=== PATIENT | female | born 1945 | race Caucasian/White ===

== ENCOUNTER 2018-03-31 09:00 | Outpatient (RCR) | payer MEDICARE, OTHER ==
--- NOTE | 2018-02-22 16:24 | PT INITIAL EVALUATION ---
MEDICAL DIAGNOSIS: L hip pain, SI joint arthritis TREATMENT DIAGNOSIS: same DATE OF ONSET: 02/22/17 SUBJECTIVE: [place] Watson presents to physical therapy with L low back pain with radiating pain down her L LE along with L hip pain that started approximately 1 year ago. She reports that there was no mechanism of injury. She reports that it first started in the medial hip region while sitting and then has progressed to her L PSIS region and down to her knee over the last year. She reports that the pain is worse with bending and sitting and better with standing and walking. She denies any weight loss (unexplained), accidents , or surgeries. She reports that she thinks that it feels like better posture alleviates the pain while standing or sitting. Pain location is L anterior medial hip, L PSIS and described as sharp, achy. Pain scale is 3 on a ten point pain scale. REHAB PROBLEM LIST: Increased Pain Decreased ROM Decreased Strength Decreased Endurance Decreased Function PREVIOUS MEDICAL HISTORY: See EMR OCCUPATION: Retired OBJECTIVE: Posture: She demonstrated minimal B rounded shoulders, increased thoracic kyphosis, and decreased lumbar lordosis, however, lateral shift was not noted. ROM: flexion: NIL with painful end feel. extension: minimal restriction with painful end feel. side gliding R: minimal restriction with painful end feel. side gliding L: minimal restriction with painful end feel. Palpation: TTP: over L PSIS and medial hip, and gluteal fold Special Tests: Repeated extension: pain during the test and worse following the test. Repeated flexion: pain during the test and better following the test. Mobility: Independent ASSESSMENT: Florida Watson will benefit from skilled physical therapy addressing the listed impairments to improve function and QOL. Based on examination, her provisional classification would be anterior derangement that responded well to flexion based exercises with resulting improvements in trunk AROM and improved end feels in all directions. Short Term Goals 2 weeks: Pt will demonstrate centralized low back pain to improve function and QOL. 4 weeks: Pt will demonstrate abolished low back pain to improve function and QOL. 6 weeks: Pt will return to prior level of function without any low back pain or radiating pain to improve function and QOL. Patient's Goals allow the L leg to work like the R leg PLAN: Patient to be seen for Manual Therapy/STM/MET Strengthening/condition Range of Motion Spinal Stabilization Work Hardening/Cond Stretching Neuromuscular Re-ed Closed Chain Program Posture/Body mechanics Home Exercise Program Therapeutic Activities 2-3x/week for 6 Weeks If you have any questions, comments, or concerns about this report or plan, please contact me at . Thank you, Haja Birmingham, PT, DPT [facility]
[~2018-03-31 09:00] MED LIST: ACET-1966 PO; APIX5TAB PO; CHOL100059 PO; DICL100G39; LEVO88TA45 PO; METO25TA93 PO; MIRA25TA PO; MULT-865 PO; PRAV40TA78 PO; SIMV-54 PO; TRIA15OI20 TP; VENL37.594 PO
--- NOTE | 2018-03-31 15:53 | PT PLAN OF CARE ---
Physician: Prachi Espinoza MD Patient is being seen: 1-2x/week Therapist: Haja Birmingham, PT, DPT Medical Diagnosis: L hip pain, SI joint arthritis Treatment Diagnosis: same Date of Onset: 02/22/17 Date of Initial Evaluation: 02/22/18 Date patient was last seen: 03/31/18 Number of treatments: 8 Number of cancellations/No shows: [*] INTERVENTIONS: Manual Therapy/STM/MET Strengthening/condition Range of Motion Spinal Stabilization Work Hardening/Cond Stretching Neuromuscular Re-ed Closed Chain Program Posture/Body mechanics Home Exercise Program Therapeutic Activities GOALS: 2 weeks: Pt will demonstrate centralized low back pain to improve function and QOL. MET 4 weeks: Pt will demonstrate abolished low back pain to improve function and QOL. MET 6 weeks: Pt will return to prior level of function without any low back pain or radiating pain to improve function and QOL. Not MET PATIENT'S GOAL: allow the L leg to work like the R leg: progressing Status of Patient's Goals: Progressing Patient Compliance: Good Prognosis: Excellent Reasons for continuing therapy: This is a discharge note for [place] Watson. She reports that she continues to have the medial thigh pain with walking more than a few blocks. She reports that she has been performing her specific exercise. She denies any current pain. She continues to demonstrate a provisional classification of a derangement that is responding to posterior lateral principles as she demonstrates centralized to abolished low back pain and full trunk AROM in all directions following the session. She is independent on her specific exercise. She has progressed with her goals. Furthermore, I am certain that if she continues her specific exercise the R medial pain will abolish with ambulation. She will be leaving for the summer. As a result, she will be discharged from PT. Posture: She demonstrated minimal B rounded shoulders, increased thoracic kyphosis, and decreased lumbar lordosis, however, lateral shift was not noted. ROM: flexion: NIL with painful end feel. extension: NIL with normal end feel. side gliding R: NIL with normal end feel. side gliding L: NIL with normal end feel Mobility: Independent If you have any questions, please contact me at [phone]. Thank you, Haja Birmingham, PT, DPT [facility]
== END 2018-03-31 18:00 | disposition home or self-care (01) ==
LOC: PT 09:00
PROVIDERS: ATTEND Family Medicine
DX: M25.552 Pain in left hip (principal); M46.98 Unspecified inflammatory spondylopathy, sacral and sacrococcygeal region; M54.5 Low back pain
CPT/HCPCS: 97162

== ENCOUNTER → 2018-06-01 | Outpatient (CLI) | payer MEDICARE, OTHER ==
--- NOTE | 2018-06-01 10:53 | RADIOLOGY IMAGING REPORT ---
FACILITY: [facility] PATIENT NAME: Florida Watson : 1945 MR: [id number] V: [id number] EXAM DATE: ORDERING PHYSICIAN: BLANCA FAIRCHILD TECHNOLOGIST: Location: [facility] Patient: Florida Watson : 1945 Visit/Account:[id number] Date of Sevice: 06/01/2018 EXAMINATION: Left hip, 2 views 06/01/2018 9:34 AM HISTORY: lucency along the left femoral neck seen on past xray. Patient reports left hip pain for on e year which comes and goes COMPARISON: None FINDINGS: Images include AP pelvis and frog-leg left hip. Potential lucency in the lateral left fem oral neck on the KUB in 2014 is less discretely evident currently and does not appear to be of clinic al concern. Both hips are narrowed with spurring. No erosive changes. Lower lumbar spondylosis. N o acute bony finding. IMPRESSION: Mild/moderate osteoarthritis of the hips. No acute bony finding. Report Dictated By: Haris Barker MD at 06/01/2018 10:31 AM Report E-Signed By: Haris Barker MD at 06/01/2018 10:49 AM WSN:[id number]
== END ==
LOC: RAD 09:17
PROVIDERS: ATTEND Family Medicine
DX: M16.0 Bilateral primary osteoarthritis of hip (principal); M47.896 Other spondylosis, lumbar region

== ENCOUNTER → 2019-01-05 | Outpatient (CLI) | payer MEDICARE, OTHER ==
--- NOTE | 2019-01-05 14:01 | RADIOLOGY IMAGING REPORT ---
[place] [facility] [place] : 1945 MR: [id number] V: [id number] EXAM DATE: ORDERING PHYSICIAN: MICHAEL AGGARWAL TECHNOLOGIST: Location: [facility] Patient: Florida Watson : 1945 Visit/Account:[id number] Date of Sevice: 01/05/2019 [facility] [place] HISTORY: Evaluate size of uterus and endometrial stripe TECHNIQUE: Transvaginal ultrasound pelvis. COMPARISON: None. FINDINGS: Uterus: ; 5.5 cm length x 2.7 cm AP x 4.3 cm transverse. Myometrium: Unremarkable. Endometrium: Unremarkable; double thickness 5.7 mm. Cervix: There are small nabothian cysts and calcifications noted within the cervix. Ovaries: Right - not visualized Left - not visualized Adnexa: Left adnexal vessels were slightly prominent. Free pelvic fluid: None. IMPRESSION: The endometrial stripe measures 5.7 mm Neither ovary visualized Small nabothian cysts and calcifications within the cervix Report Dictated By: Marija Renner MD at 01/05/2019 1:53 PM Report E-Signed By: Marija Renner MD at 01/05/2019 1:56 PM WSN:[email or web address]
== END ==
LOC: RAD 09:58
PROVIDERS: ATTEND Obstetrics & Gynecology
DX: Z02.9 Encounter for administrative examinations, unspecified (principal)

== ENCOUNTER → 2019-01-09 | Outpatient (CLI) | payer MEDICARE, OTHER ==
[2019-01-09 10:07] LABS: PLATELET COUNT, AUTOMATED 218 K/uL (150-450)
--- NOTE | 2019-01-09 10:55 | EKG ---
FACILITY: [facility] PATIENT NAME: ISIS BOBO : [id number] MR: [id number] V: [id number] EXAM DATE: ORDERING PHYSICIAN: BLANCA FAIRCHILD TECHNOLOGIST: MYA Test Reason : PREMATURE ATRIAL CON Blood Pressure : / mmHG Vent. Rate : 063 BPM Atrial Rate : 063 BPM P-R Int : 150 ms QRS Dur : 070 ms QT Int : 410 ms P-R-T Axes : 057 056 055 degrees QTc Int : 419 ms Normal sinus rhythm Normal ECG No previous ECGs available Referred By: DEVORAH Confirmed By:
== END ==
LOC: LAB 09:39
PROVIDERS: ATTEND Family Medicine
DX: Z01.812 Encounter for preprocedural laboratory examination (principal); I48.91 Unspecified atrial fibrillation
CPT/HCPCS: 36415; 82310; 82374; 82435; 82565; 82947; 84132; 84295; 84520; 85025

== ENCOUNTER 2019-03-08 00:17 | Observation (INO) | payer MEDICARE, OTHER ==
--- NOTE | 2019-03-07 10:25 | History & Physical ---
History of Present Illness Chief Complaint Uterovaginal prolapse History of Present Illness 73-year-old presents for surgical management of symptomatic cystocele and uterine prolapse. She was initially seen and evaluated for vaginal bulge on 06/24/18. She was prescribed pelvic floor muscle therapy, but is very hesitant to start this. Her vaginal bulge symptoms have continued to worsen throughout the past few months. She now feels a bulge outside of the opening of the vagina most of the time. She also notes that urinary incontinence is more frequent. The urinary incontinence is primarily occurring at night when she has a full bladder and cannot get to the bathroom in time. She does not have significant stress urinary incontinence. She denies any vaginal bleeding. She is not interested in a pessary, she does not think she could tolerate it. She is also concerned that as her dexterity worsens with age, she would not be able to continue with the pe ssary. She is still sexually active. She would like to move forward with surgery. Of note, the patient is managed by Dr. Fairchild with paroxysmal atrial fibrillation with a history of an embolic stroke in 2015. She follows with a outside cutter from [facility]. She is on Eliquis which she will hold for one day prior to surgery and resume on postoperative day #1. History Obstetrical History: . Hx of 2 FT SVDs. Past Medical History: PMH: 1) Paroxysmal atrial fibrillation, history of embolic stroke in 06/2016 2) Hyperlipidemia 3) Arthritis 4) Anxiety 5) Hypothyroid 6) Uterovaginal prolapse PSH: 1) Tonsillectomy 2) Tubal ligation 3) Finger joint replacement Allergies: Coded Allergies: No Known Drug Allergies (Unverified , 07/07/16) Social History: Denies tobacco, alcohol or drug use. She is . Family History: FH: diabetes mellitus FATHER, , Age:62 Med Rec Home Meds Active Scripts Levothyroxine Sodium (LEVOTHYROXINE SODIUM) 88 Mcg Tablet, 1 TAB PO QDAY for 90 Days, #90 TAB 2 Refills Prov:BLANCA FAIRCHILD MD 10/24/18 Apixaban (ELIQUIS) 5 Mg Tablet, 1 TAB PO BID for 90 Days, #180 TAB 4 Refills Prov:BLANCA FAIRCHILD MD 05/05/18 Pravastatin Sodium (PRAVASTATIN SODIUM) 40 Mg Tablet, 1 TAB PO QDAY for 90 Days, #90 TAB 4 Refills Prov:BLANCA FAIRCHILD MD 03/22/18 Reported Medications Metoprolol Tartrate (METOPROLOL TARTRATE) 25 Mg Tablet, 0.5 TAB PO HS, TAB 03/02/19 Acetaminophen (TYLENOL) 325 Mg Tablet, 2 TAB PO PRN, TAB 02/21/18 Discontinued Reported Medications Diclofenac Sodium 1% Gel (VOLTAREN 1% GEL) 100 Gm Gel..gram., PRN 06/07/17 Triamcinolone Acetonide 0.1% Oint 15 Gm Tube (TRIAMCINOLONE ACETONIDE 0.1% 15 GM TUBE) 15 Gm Oint...g., 15 GM TP PRN, TUBE 06/07/17 Discontinued Scripts Metoprolol Tartrate (METOPROLOL TARTRATE) 25 Mg Tablet, 0.5 TAB PO QDAY, #45 TAB 3 Refills Prov:BLANCA FAIRCHILD MD 09/13/18 Medical Decision Making Imaging Ultrasound/Imaging PATIENT NAME: Florida Watson : 1945 MR: [id number] V: [id number] EXAM DATE: ORDERING PHYSICIAN: MICHAEL AGGARWAL TECHNOLOGIST: Location: [facility] Patient: Florida Watson : 1945 Visit/Account:[id number] Date of Sevice: 01/05/2019 [facility] [place]AG[place]AL NON-OB HISTORY: Evaluate size of uterus and endometrial stripe TECHNIQUE: Transvaginal ultrasound pelvis. COMPARISON: None. FINDINGS: Uterus: ; 5.5 cm length x 2.7 cm AP x 4.3 cm transverse. Myometrium: Unremarkable. Endometrium: Unremarkable; double thickness 5.7 mm. Cervix: There are small nabothian cysts and calcifications noted within the cervix. Ovaries: Right - not visualized Left - not visualized Adnexa: Left adnexal vessels were slightly prominent. Free pelvic fluid: None. IMPRESSION: The endometrial stripe measures 5.7 mm Neither ovary visualized Small nabothian cysts and calcifications within the cervix Report Dictated By: Marija Renner MD at 01/05/2019 1:53 PM Report E-Signed By: Marija Renner MD at 01/05/2019 1:56 PM Pre-Admit Course Medical Record Review: Yes Assessment and Plan Problems: (1) Uterine prolapse Assessment & Plan: 73-year-old presents for surgical management of her symptomatic cystocele and uterine prolapse. On exam she has a Grade 3-4 cystocele, grade 2-3 uterine prolapse, and no appreciable rectocele. She is adamant she wants definitive management with surgery as opposed to a pessary. We discussed proceeding with a robotic-assisted TLH/BSO with anterior repair and diagnostic cystoscopy. She is scheduled for 03/08/19. She has been surgically cleared with Dr. Fairchild to proceed as a moderate risk. She has recommended stopping Eliquis the day before surgery and restarting on postoperative day #1 (her note is in [facility]). I discussed with the patient that we will keep her on telemetry while she is off of anticoagulants to ensure she does not develop atrial fibrillation postoperatively. (2) Cystocele Assessment & Plan: As above. Problem Qualifiers (1) Cystocele: Cystocele location: midline Qualified Codes: N81.11 - Cystocele, midline MICHAEL AGGARWAL MD Mar 07, 2019 10:25
[~2019-03-08] VITALS: Ht 160 cm; Wt 75.7 kg
[2019-03-08] VITALS (13 sets, daily range): BP systolic 108–136; BP diastolic 56–93
[2019-03-08] MEDS ORDERED: PHENAZOPYRIDINE 200 MG TAB PO ONE (06:30)
[2019-03-08] MEDS ORDERED: MIDAZOLAM 2 MG/2 ML VIAL IVP PRN (06:30)
[2019-03-08] MEDS ORDERED: ceFAZolin(*) 2GM/D5W 50ML 50 ML IVPB ONE (06:30)
[2019-03-08] MEDS ORDERED: LIDOCAINE/SOD BICARB 8.4% SYR ID ONE (06:30)
[2019-03-08] MEDS ORDERED: NORMOSOL R SOLN(*) 1000 ML BAG 1,000 ML IV PRN (06:30)
[2019-03-08] MEDS ORDERED: FAMOTIDINE 20 MG TAB PO ONE (06:30)
[2019-03-08] MEDS ORDERED: DEXAMETHASONE SOD 4 MG/ML VIAL ONE (06:49)
[2019-03-08] MEDS ORDERED: PROPOFOL EMUL(*) 10MG/ML 20 ML 20 ML ONE (06:49)
[2019-03-08] MEDS ORDERED: ONDANSETRON 4 MG/2 ML VIAL ONE (06:49)
[2019-03-08] MEDS ORDERED: METOCLOPRAMIDE 10 MG/2 ML SDV ONE (06:49)
[2019-03-08] MEDS ORDERED: LIDOCAINE MPF 1% 5 ML VIAL ONE (06:49)
[2019-03-08 06:50] LABS: PLATELET COUNT, AUTOMATED 185 K/uL (150-450)
[2019-03-08] MEDS ORDERED: SUGAMMADEX SOD 200 MG/2 ML SDV ONE (06:51)
[2019-03-08] MEDS ORDERED: fentaNYL CITR 250 MCG/5 ML AMP ONE (06:51)
[2019-03-08] MEDS ORDERED: VASOPRESSIN 20 UNIT/ML VIAL ONE (07:07)
[2019-03-08] MEDS ORDERED: BUPIV/EPI 0.25% 1:200,000 50ML INFIL ONE (07:07)
[2019-03-08] MEDS ORDERED: NS(*) 0.9% 250 ML BAG 250 ML ONE (07:07)
[2019-03-08] MEDS ORDERED: ROCURONIUM BROM 10 MG/ML 5 ML ONE (07:24)
[2019-03-08] MEDS ORDERED: ESTROGENS CONJ VAG CREAM 30 GM TUBE PV ONE (09:10)
[2019-03-08] MEDS ORDERED: DLR(*) 1000 ML BAG 1,000 ML IV PRN (09:26)
--- NOTE | 2019-03-08 09:26 | Post Operative Note ---
Operative Note - MOTOR OPERATOR Operative Day Date: March 08, 2019 Time: 09:25 Physicians Surgeon: Bren Drill Press Operator For Metal: Vinnie Anesthesia: GETA, Crechiquis Diagnosis Pre-Op Diagnosis: Symptomatic Grade 3-4 cystocele, grade 2-3 uterine prolapse Post-Op Diagnosis: Same Procedure Procedure(s): RATLH/BSO, dx cysto, anterior colporraphy Specimen Removed:(Maybe N/A): Uterus, tubes, ovaries Fluids Fluids: 1800cc Estimated Blood Loss: 50cc MICHAEL AGGARWAL MD March 08, 2019 09:26
[2019-03-08] MEDS ORDERED: ACETAMINOPHEN 325 MG TAB PO PRN (09:30)
[2019-03-08] MEDS ORDERED: SIMETHICONE 80 MG CHEW CHEW PRN (09:30)
[2019-03-08] MEDS ORDERED: METOCLOPRAMIDE 10 MG/2 ML SDV IV PRN (09:30)
[2019-03-08] MEDS ORDERED: ONDANSETRON 4 MG/2 ML VIAL IV PRN (09:30)
[2019-03-08] MEDS ORDERED: MAGNESIUM HYDROXIDE* 30ML UDCP PO PRN (09:30)
[2019-03-08] MEDS ORDERED: IBUP600T22 PO (09:40)
[2019-03-08] MEDS ORDERED: OXYC-865 PO (09:40)
[2019-03-08] MEDS ORDERED: MEPERIDINE HCL 50 MG/ML SDV 50 MG/ML VIAL ONE (09:48)
--- NOTE | 2019-03-08 11:36 | OPERATIVE REPORT 1 ---
EVENT DATE: March 08, 2019 SURGEON: Naz Correia MD ANESTHESIOLOGIST: Bayron Patel MD ANESTHESIA: General endotracheal tube. POLICY MANAGER: René Birmingham MD PREOPERATIVE DIAGNOSIS Symptomatic cystocele and uterine prolapse. POSTOPERATIVE DIAGNOSIS Symptomatic cystocele and uterine prolapse. PROCEDURE PERFORMED 1. Robotic-assisted total laparoscopic hysterectomy with bilateral salpingo- oophorectomy. 2. Anterior colporrhaphy. 3. Diagnostic cystoscopy. SPECIMENS Uterus, bilateral fallopian tubes, and bilateral ovaries. IV FLUIDS 1800 cc. ESTIMATED BLOOD LOSS 50 cc. INDICATIONS FOR PROCEDURE This patient is a 73-year-old, 3, para 2 0-1-2 who presents for surgical management of a symptomatic cystocele and uterine prolapse. She was initially seen and evaluated with a vaginal bulge on 06/24/18. She was prescribed pelvic floor muscle therapy, but was hesitant to start this. She has since started this. However, her vaginal bulge symptoms have continued to worsen. She now feels a bulge outside of the opening of the vagina most of the time. She was counseled on the option of a Pessary, but declines this. She requested definitive management. She therefore requested to move forward with surgery and was admitted for the above said procedure. DESCRIPTION OF PROCEDURE The patient was properly identified and taken to the operating room. She was placed under general endotracheal tube anesthetic, placed in the dorsal lithotomy position and prepped and draped in the usual fashion for a laparoscopic assisted vaginal procedure. The patient received Ancef preoperatively for prophylactic antibiotics. Her SCDs were on and functioning. A bimanual exam was performed which revealed a small anteverted uterus. A right angle Grave speculum was placed to visualize the cervix which was multiparous without lesion. The anterior lip was grasped with a tenaculum. The cervix was serially dilated to 5 mm using Hegar dilators. A medium VCare uterine manipulator was then requested and assembled. A suture was placed through the anterior lip of the cervix to the cervical os and then from the os through the posterior lip of the cervix. This suture was then passed through the VCare. The VCare was then placed up to the uterine fundus and the tip was insufflated. The colpotomy ring was advanced to be flush against the cervix and vaginal mucosa. This was then tied down with an 0 Vicryl suture. The PneumoClear was then advanced into the vagina and secured. A Nguyen catheter was then placed to drain the bladder. The patient was placed in the supine position. Attention was turned to the laparoscopic portion of the procedure. The supraumbilical region was infiltrated with 0.25% Marcaine with epinephrine. A Veress needle was tested and proven to be functioning. An 8 mm incision was made supraumbilically. The Veress needle was initially passed through the incision into the abdominal cavity using a double click test. Pneumoperitoneum was able to be achieved. The 8 mm trocar was introduced through the supraumbilical midline incision under direct visualization using a DoorDash laparoscope. Once entry into the abdominal cavity was confirmed, the remaining locations for the trocars were planned with 2 on the right and 2 on the left. The two 8 mm trocars were inserted under direct visualization on the patient's right side after infiltrating 0.25% Marcaine and making an 8 mm incision with the scalpel. On the patient's left side, an 11 mm incision was made on the most lateral incision and an 8 mm incision on the more medial. These two ports were then introduced under direct visualization. At this time, the patient was placed into Trendelenburg position and the da Velma robotic system was prepared for docking. It was then brought in and aligned. The endoscope port was docked. The endoscope was then introduced and the targeting was performed on the uterus. The remaining arms were then docked without difficulty. The fenestrated bipolar graspers, ProGrasp and monopolar scissors were then advanced under direct visualization into the pelvis and the energy was connected. At this time, I was able to break sterile attire and sit at the console to initiate the hysterectomy. Examination of the pelvis revealed no significant adhesions or abnormalities. In order to initiate the salpingo oophorectomy on the patient's left side, the left ureter was identified and noted to be far away from the IP ligament. The left round ligament was cauterized and transected which allowed to open the anterior leaflet of the broad ligament which was brought down minimally. The peritoneum was then opened along the pelvic side- wall superiorly towards the IP ligament which allowed me to isolate the IP ligament well. The infundibulopelvic ligament was placed on gentle traction with grasping the patient's left tube and ovary. The IP was cauterized and transected using a combination of bipolar and monopolar scissors. The remaining peritoneum was then brought down as well as the mesosalpinx up to the uterine attachment. The broad ligament was further opened up anteriorly and brought across the midline above the colpotomy ring in order to separate the vesicouterine peritoneum. The posterior peritoneum was then dissected further off the uterus on the left side, down towards the cervix. The uterine vessels were identified, cauterized and transected in order to allow for the colpotomy to be performed. Attention was then turned to the patient's right side, where the right ureter was identified and noted to be far away from the IP ligament. The right round ligament was then cauterized and transected which allowed opening of the broad ligament as well as superiorly the peritoneum. The peritoneum was further dissected allowing a window for the IP ligament to be identified. The IP ligament was skeletonized, cauterized and transected on the right side. The mesosalpinx was then taken down, followed by cautery and ligation of the anterior leaflet of the broad ligament. The vesicouterine peritoneum was further dissected to allow the colpotomy ring to be well identified. The posterior leaflet of the broad ligament on the right side was then taken down to the level of the colpotomy ring. The uterine vessels were visualized and cauterized on the right side. The colpotomy was then initiated anteriorly with identification of the colpotomy ring. The colpotomy was then continued in a circumferential fashion until the entire colpotomy was complete. The uterus was then delivered into the vagina. The cuff was then noted to be hemostatic. An 0 Vicryl suture was utilized in a [id number] fashion to reapproximate the tissue on the left corner. A V-Loc suture was then initiated on the right side to reapproximate the right corner, following to the left with an unlocked suture. Once this was completely closed, the suture was followed backwards with one additional suture towards the right. Once this was completed, irrigation was not needed as there was essentially no blood loss during this portion of the surgery. Using the Gregory-Katrin device, the fascia of the accounts payable assistant port was closed using an 0 Vicryl with the robotic assistance. All of the robotic arms were then undocked and the instruments were removed. Pneumoperitoneum was relieved. The 11 mm fascia was tied down. All five skin incisions were reapproximated using a 4-0 Monocryl and closed with Dermabond. Attention then was turned to the anterior repair and diagnostic cystoscopy. The Nguyen catheter was removed from the bladder. The cystoscope was assembled and introduced through the urethra and into the bladder under direct visualization. The entire bladder was evaluated and noted to be normal without any lesion or suture. Bilateral ureteral jets were noted with Pyridium stained urine. The cystoscope was then removed and the Nguyen catheter was replaced. A weighted speculum was placed posteriorly in the vagina to allow visualization of the anterior vaginal wall. An Allis clamp was placed 1 cm proximal to the urethra along the midline of the anterior vagina and two additional Allis clamps on either side of the vagina, just distal to the suture line from the hysterectomy. The anterior vaginal wall was injected with vasopressin to allow for hydrodissection as well as to decrease blood loss. A transverse incision was made between the two Allis clamps on the vagina just distal to the vaginal cuff. Using Metzenbaum scissors, the vaginal mucosa was dissected off the underlying tissue anteriorly. The vaginal mucosa was then further mobilized throughout the entire incision. Additional Allis clamps were placed on the mucosal edges to assist in retraction. Further dissection of the mucosa from the underlying tissue was performed bilaterally until the mucosa had been dissected off the entire bladder. Plication of the vaginal muscularis was then performed using [id number] sutures using a 2-0 Vicryl. The first one in a circumferential manner and the further ones working proximal to distal. Once adequate plication of the tissue was obtained, the redundant vaginal mucosa was removed. The vagina was then closed with a 2-0 Vicryl working in a running, locking fashion. Hemostasis was assured. A vaginal packing was then placed to aid with hemostasis. The patient tolerated this procedure well and recovered in the post anesthesia care unit. All sponge, needle, and instrument counts were correct at the end of this procedure. TIBURCIOD
--- NOTE | 2019-03-08 15:27 | OB/GYN Progress Note ---
OB Subjective Progress Notes Subjective Pt is doing well. She is tolerating po well. Her well is moderately controlled with percocet. Alvarado and pack in. Not yet ambulating. OB Objective Physical Exam Vital Signs Date Time Temp Pulse Resp B/P (MAP) Pulse Ox O2 Delivery O2 Flow Rate FiO2 03/08/19 14:00 70 113/57 (75) 97 1.0 03/08/19 11:00 Nasal Cannula 03/08/19 10:48 20 03/08/19 10:48 97.5 General Appearance: Alert/Awake/No Acute Distress Neurological: No Gross deficits Eyes: Normal Extraocular Movement & Vison Cardiovascular: Normal Rhythm & Peripheral Pulses, Regular Rate and Rhythm Respiratory: No Respiratory Distress, Clear to Auscultation Abdomen: Soft, Non-Tender, Non-Distended Incision: Clean, Dry, Intact, Dermabond Musculoskeletal: No Weakness/Pain Extremities: No Cyanosis,Clubbing or Edema Integumentary: Skin Intact without Lesions or Rash Psychological: Alert & Oriented X3, Appropriate Mood & Affect Result Diagram: 03/08/19 0644 03/08/19 0644 Assessment and Plan Problems: (1) History of robot-assisted laparoscopic hysterectomy Assessment & Plan: POD#0 s/p RATLH/BSO, dx cysto, anterior repair. She is doing well. Remove alvarado and packing tonight. Routine orders otherwise. Continue telemetry. Start Lovenox/Eliquis tonight for VTE prophylaxis. MICHAEL AGGARWAL MD March 08, 2019 15:27
[2019-03-08] MEDS ORDERED: KETOROLAC 30 MG/ML VIAL IVP ONE (16:00)
[2019-03-08] MEDS ORDERED: IBUPROFEN 600 MG TAB PO PRN (16:15)
[2019-03-08 18:15] LABS: PLATELET COUNT, AUTOMATED 206 K/uL (150-450)
[2019-03-08] MEDS ORDERED: ENOXAPARIN 40 MG/0.4ML SYR SC SCH (19:00)
[2019-03-08] MEDS: DOCUSATE CALCIUM 240 MG CAP PO SCH (20:24)
[2019-03-08] MEDS: FAMOTIDINE 20 MG TAB PO SCH (20:24)
[2019-03-08] MEDS: APIXABAN 2.5 MG TABLET PO SCH (20:25)
[2019-03-08] MEDS ORDERED: MAGNESIUM HYDROXIDE* 30ML UDCP PO ONE (21:00)
[2019-03-08] MEDS ORDERED: METOPROLOL TART 50 MG TAB PO SCH (21:00)
[2019-03-09 02:11] VITALS: BP 133/75
[2019-03-09 07:22] VITALS: BP 116/63
--- NOTE | 2019-03-09 08:17 | OB/GYN Progress Note ---
OB Subjective Progress Notes Subjective Doing well. Pain controlled with oral medications. Tolerating regular diet. Ambulating. Voiding but only small amounts - she required a catheter this morning to empty 350cc. Minimal vaginal bleeding. No chest pain, shortness of breath or dizziness. OB Objective Physical Exam Vital Signs Date Time Temp Pulse Resp B/P (MAP) Pulse Ox O2 Delivery O2 Flow Rate FiO2 03/09/19 07:22 98.3 65 116/63 (80) 98 Room Air 03/09/19 02:11 20 03/08/19 22:55 1.0 Intake and Output 03/09/19 07:00 Intake Total 4310 ml Output Total 1150 ml Balance 3160 ml Intake Oral 2360 ml IV Total 1950 ml Output Urine Total 1150 ml General Appearance: Alert/Awake/No Acute Distress Neurological: No Gross deficits Eyes: Normal Extraocular Movement & Vison Cardiovascular: Normal Rhythm & Peripheral Pulses, Regular Rate and Rhythm Respiratory: No Respiratory Distress, Clear to Auscultation Abdomen: Soft, Non-Tender, Non-Distended Incision: Clean, Dry, Intact, Dermabond Musculoskeletal: No Weakness/Pain Extremities: No Cyanosis,Clubbing or Edema Integumentary: Skin Intact without Lesions or Rash Psychological: Alert & Oriented X3, Appropriate Mood & Affect Result Diagram: 03/09/19 0553 03/08/19 0644 Assessment and Plan Problems: (1) History of robot-assisted laparoscopic hysterectomy Assessment & Plan: POD#1 s/p RATLH/BSO, dx cysto, anterior repair. She is doing well. The only concern so far is small urinary retention and requiring a straight cath this morning for it. Will monitor today and if it resolved discharge to home. Continue telemetry. Eliquis has been restarted for VTE prophylaxis. MICHAEL AGGARWAL MD March 09, 2019 08:17
[2019-03-09] MEDS: DOCUSATE CALCIUM 240 MG CAP PO SCH (09:20)
[2019-03-09] MEDS: FAMOTIDINE 20 MG TAB PO SCH (09:20)
[2019-03-09] MEDS ORDERED: INFLUENZA VIRUS VAC 0.5ML SYR IM ONLY ONE (09:30)
[2019-03-09] MEDS: APIXABAN 2.5 MG TABLET PO SCH (09:33)
[2019-03-09 11:09] VITALS: BP 125/73
--- NOTE | 2019-03-09 12:49 | OB/GYN Progress Note ---
OB Subjective Progress Notes Subjective Patient is doing much better. She is able to void without any difficulty. She feels ready to go home. OB Objective Physical Exam Vital Signs Date Time Temp Pulse Resp B/P (MAP) Pulse Ox O2 Delivery O2 Flow Rate FiO2 03/09/19 11:09 98.2 67 125/73 (90) 90 Room Air 03/09/19 02:11 20 03/08/19 22:55 1.0 Intake and Output 03/09/19 07:00 Intake Total 4310 ml Output Total 1150 ml Balance 3160 ml Intake Oral 2360 ml IV Total 1950 ml Output Urine Total 1150 ml General Appearance: Alert/Awake/No Acute Distress Neurological: No Gross deficits Eyes: Normal Extraocular Movement & Vison Cardiovascular: Normal Rhythm & Peripheral Pulses, Regular Rate and Rhythm Respiratory: No Respiratory Distress, Clear to Auscultation Abdomen: Soft, Non-Tender, Non-Distended Incision: Clean, Dry, Intact, Dermabond Musculoskeletal: No Weakness/Pain Extremities: No Cyanosis,Clubbing or Edema Integumentary: Skin Intact without Lesions or Rash Psychological: Alert & Oriented X3, Appropriate Mood & Affect Result Diagram: 03/09/19 0553 03/08/19 0644 Assessment and Plan Problems: (1) History of robot-assisted laparoscopic hysterectomy Assessment & Plan: POD#1 s/p RATLH/BSO, dx cysto, anterior repair. She is doing well. Meeting milestones. Desires discharge to home today. Discussed routine postoperative expectations. Questions answered. Follow up in clinic in 1-2wks for postop check. MICHAEL AGGARWAL MD March 09, 2019 12:49
--- NOTE | 2019-03-09 12:50 | OB/GYN Discharge Summary ---
Discharge Summary Reason for Hosp/Final Diag: (1) History of robot-assisted laparoscopic hysterectomy Hospital Course & Plan: POD#1 s/p RATLH/BSO, dx cysto, anterior repair. She is doing well. Meeting milestones. Desires discharge to home today. Discussed routine postoperative expectations. Questions answered. Follow up in clinic in 1-2wks for postop check. Lates Vital Signs Vital Signs Date Time Temp Pulse Resp B/P (MAP) Pulse Ox O2 Delivery O2 Flow Rate FiO2 03/09/19 11:09 98.2 67 125/73 (90) 90 Room Air 03/09/19 02:11 20 03/08/19 22:55 1.0 Weight (Pounds): 167 Result Diagram: 03/09/19 0553 03/08/19 0644 Condition: Improved Discharge: Home, Self Senior Living Meds Active Scripts Oxycodone Hcl/Acetaminophen (PERCOCET 5-325 MG TABLET) 1 Each Tablet, 1 TAB PO Q6H PRN for pain, #20 TAB 0 Refills Prov:MICHAEL AGGARWAL MD 03/08/19 Levothyroxine Sodium (LEVOTHYROXINE SODIUM) 88 Mcg Tablet, 1 TAB PO QDAY for 90 Days, #90 TAB 2 Refills Prov:BLANCA FAIRCHILD MD 10/24/18 Apixaban (ELIQUIS) 5 Mg Tablet, 1 TAB PO BID for 90 Days, #180 TAB 4 Refills Prov:BLANCA FAIRCHILD MD 05/05/18 Pravastatin Sodium (PRAVASTATIN SODIUM) 40 Mg Tablet, 1 TAB PO QDAY for 90 Days, #90 TAB 4 Refills Prov:BLANCA FAIRCHILD MD 03/22/18 Reported Medications Metoprolol Tartrate (METOPROLOL TARTRATE) 25 Mg Tablet, 0.5 TAB PO HS, TAB 03/02/19 Acetaminophen (TYLENOL) 325 Mg Tablet, 2 TAB PO PRN, TAB 02/21/18 Discontinued Reported Medications Diclofenac Sodium 1% Gel (VOLTAREN 1% GEL) 100 Gm Gel..gram., PRN 06/07/17 Triamcinolone Acetonide 0.1% Oint 15 Gm Tube (TRIAMCINOLONE ACETONIDE 0.1% 15 GM TUBE) 15 Gm Oint...g., 15 GM TP PRN, TUBE 06/07/17 Discontinued Scripts Metoprolol Tartrate (METOPROLOL TARTRATE) 25 Mg Tablet, 0.5 TAB PO QDAY, #45 TAB 3 Refills Prov:BLANCA FAIRCHILD MD 09/13/18 Follow up Referrals: CERTIFIED REGISTERED DENTAL ASSISTANT - In Two Weeks @ [facility] [place] with MICHAEL AGGARWAL MD Discharge Diet: As Tolerates Discharge Activity: No Heavy Lifting > 10lb, Pelvic Rest MICHAEL AGGARWAL MD March 09, 2019 12:50
== END 2019-03-09 12:49 | disposition home or self-care (01) ==
LOC: OR 00:17 → PED 10:48
PROVIDERS: ADMIT Obstetrics & Gynecology; ATTEND Obstetrics & Gynecology
DX: N81.4 Uterovaginal prolapse, unspecified (principal); E78.5 Hyperlipidemia, unspecified; E03.9 Hypothyroidism, unspecified
CPT/HCPCS: 36415; 58571; 85025; 85027; 88307; A9270; G0378; J1100; J1885; J2001; J2175; J2250; J2405; J2704; J2765; J3010; J3490; J7050; S2900; 82310; 82374; 82435; 82565; 82947; 84132; 84295; 84520; J0690

== ENCOUNTER → 2019-03-23 | Outpatient (CLI) | payer MEDICARE, OTHER ==
[~2019-03-23] MED LIST changes: +ALFU10TA9 PO; +IBUP600T22 PO; +LEVO250T41 PO; +LOR5/325 PO; +NITR-105 PO; +OXYC-865 PO
== END ==
LOC: LAB 11:15
PROVIDERS: ATTEND Obstetrics & Gynecology
DX: N99.89 Other postprocedural complications and disorders of genitourinary system (principal)
CPT/HCPCS: 87077; 87088; 87186